=== PATIENT | male | born 1995 | race Two or more races ===

== ENCOUNTER 2017-09-02 13:50 | Emergency (ER) | payer OTHER ==
[~2017-09-02] VITALS: Ht 170.2 cm; Wt 81.6 kg
[2017-09-02 14:13] VITALS: BP 140/75
[2017-09-02] MEDS ORDERED: cefTRIAXone SOD 1,000 MG VL IM ONE (14:45)
== END 2017-09-02 14:58 | disposition home or self-care (01) ==
LOC: ER 13:59
DX: J03.90 Acute tonsillitis, unspecified (principal); J45.909 Unspecified asthma, uncomplicated
CPT/HCPCS: 96372; 99283; J0696